=== PATIENT | male | born 1960 | race African-American/Black ===

== ENCOUNTER 2017-01-17 11:10 | Emergency (ER) | payer MEDICAID ==
[~2017-01-17] VITALS: Ht 165.1 cm; Wt 105.0 kg
[~2017-01-17 11:10] MED LIST: ACET-283 PO; ALBU18HF2 IH; AMLO5TAB4 PO; LEVO500T2 PO; LORA10TA7 PO; METO50TA5 PO; TRIA1CAP6 PO
[2017-01-17] MEDS ORDERED: NITROGLYCERIN OINT 1GM/INCH UDPKT TD ONE (12:00)
[2017-01-17 12:21] LABS: BASOPHILS % 1.3 % (0.0-2.0); EOSINOPHILS % 1.6 % (0.0-5.0); HEMOGLOBIN. 14.6 g/dL (14.0-18.0); LYMPHOCYTES % 33.1 % (20.0-50.0); MEAN CORPUSCULAR HEMOGLOBIN 27.8 pg (28.0-32.0); MEAN CORPUSCULAR VOLUME 84.2 fL (80.0-94.0); MEAN PLATELET VOLUME 8.5 fl (7.4-10.4); MONOCYTES % 7.7 % (2.0-8.0); NEUTROPHILS % 56.3 % (40.0-76.0); PLATELET 215 x1000/uL (130-400); RED BLOOD CELL COUNT 5.23 mill/uL (4.7-6.1); RED CELL DISTRIBUTION WIDTH 14.7 % (11.6-14.6)
[2017-01-17 12:34] LABS: CARBON DIOXIDE 27 mEq/L (21-32); CHLORIDE 108 mEq/L (98-107); ETHANOL BLOOD < 10 mg/dL
[2017-01-17 12:38] LABS: TROPONIN I < 0.02 ng/mL (0.00-0.04)
[2017-01-17 12:40] LABS: INR 0.9; PROTHROMBIN TIME 9.7 sec (9.4-11.6)
[2017-01-17 13:22] LABS: *AMPHETAMINES SCREEN URINE PRESUMTIVE POSITIVE (NEGATIVE); *BARBITURATES SCREEN URINE NEGATIVE (NEGATIVE); *BENZODIAZEPINES SCREEN URINE NEGATIVE (NEGATIVE); *COCAINE SCREEN URINE NEGATIVE (NEGATIVE); CANNABINOID URINE SCREEN NEGATIVE (NEGATIVE); METHADONE URINE SCREEN NEGATIVE (NEGATIVE); OPIATES URINE SCREEN NEGATIVE (NEGATIVE); PHENCYCLIDINE URINE SCREEN PRESUMTIVE POSITIVE (NEGATIVE)
[2017-01-17 14:15] VITALS: BP 161/101
== END 2017-01-17 15:15 | disposition home or self-care (01) ==
LOC: ER 11:42 → CANBEDREQ 16:21
DX: R07.9 Chest pain, unspecified (principal); F15.10 Other stimulant abuse, uncomplicated; F16.10 Hallucinogen abuse, uncomplicated; E11.9 Type 2 diabetes mellitus without complications; I10 Essential (primary) hypertension; M19.90 Unspecified osteoarthritis, unspecified site; F17.210 Nicotine dependence, cigarettes, uncomplicated; I69.334 Monoplegia of upper limb following cerebral infarction affecting left non-dominant side; Z88.6 Allergy status to analgesic agent
CPT/HCPCS: 36415; 71010; 80053; 80305; 83690; 83880; 84484; 85025; 85610; 93005; 99285; G0482; Z7610